=== PATIENT | male | born 1940 | race Caucasian/White ===

== ENCOUNTER 2019-08-24 10:21 | Emergency (ER) | payer MEDICARE, SELFPAY ==
--- NOTE | ~2019-08-24 | XR_ITS ---
EXAMINATION: XR chest 2V DATE: 08/24/2019 11:41 INDICATION: Heart failure. TECHNIQUE: Frontal and lateral views of the chest were obtained. COMPARISON: None. FINDINGS: There are small pleural effusions. There are airspace opacities in the right mid and lower lung zones and left lower lung zone. No pneumothorax. Cardiomegaly is noted. IMPRESSION: 1. Small pleural effusions. 2. Airspace opacities in the right mid and lower lung zones and left lower lung zone, consistent with atelectasis or less likely pneumonia. 3. Cardiomegaly. Reviewed, dictated and finalized at location A.
[2019-08-24 10:36] VITALS: BP 111/87; PULSE 91; RESP 21; TEMP 36.3; O2SAT 95
--- NOTE | 2019-08-24 10:46 | ED.GENADULT ---
HPI - General Adult General Chief complaint: Unspecified Stated complaint: left a fdc and want to know if he is okay Time Seen by Provider: 08/24/19 10:41 Source: patient, family and old records reviewed Mode of arrival: ambulatory Limitations: no limitations History of Present Illness HPI narrative: An 79 y/o male presents to the ED needing a general check-up. Pt's family states that the patient has been at [facility] and the family took him out today because the fdc is trying to push him towards hospice. The family notes that they are unsure why he is here, what his conditions are, and what he has been diagnosed with. The family does not want the patient on hospice and the fdc was making the family be in quarantine so they left the fdc today. According to family the patient has 2 months to live but they do not know why. The patients medication was raised yesterday, but the family does not know which ones or why. The family states he has a PMHx of CHF. He denies CP, SOB, fever, N/V/D, and ABD pain. The family just wants to know if he can go home and if his vitals are okay. The patient is normally not confused but does not know the month, his location, or how old he is. The family adds that he has been going in and out recently. [facility] notes show that he is on a water pill, potassium, and a blood thinner. MD complaint: General check-up Onset (ago): hour(s) (Today) Associated symptoms: confusion Treatments prior to arrival: other (Unknown) Related Data Home Medications Medication Instructions Recorded Confirmed apixaban [Eliquis] 2.5 mg PO BID 08/24/19 furosemide [Lasix] 40 mg PO BID 08/24/19 metoprolol succinate 200 mg PO DAILY 08/24/19 multivitamin,tx-minerals 1 tablet PO DAILY 08/24/19 polyethylene glycol 3350 [Miralax] 17 g PO DAILY 08/24/19 potassium chloride 20 meq PO DAILY 08/24/19 sennosides-docusate sodium [Senna 1 tab-cap PO HS 08/24/19 Plus] spironolactone 25 mg PO TID 08/24/19 Allergies Allergy/AdvReac Type Severity Reaction Status Date / Time No Known Allergies Allergy Verified 08/24/19 10:46 Review of Systems Review of Systems: All systems reviewed & are unremarkable except as noted in HPI and below Constitutional: Constitutional: Denies fever(s) Cardiovascular: Cardiovascular: Denies chest pain Respiratory: Respiratory: Denies dyspnea Gastrointestinal: Gastrointestinal: Denies abdominal pain, Denies diarrhea, Denies nausea and Denies vomiting Neurologic: Reports confusion PMFSH Past Medical History Medical History (Updated 08/24/19 @ 13:09 by Alyse Carlos MD) Acute liver failure CHF (congestive heart failure) Rahman catheter in place Medical history unknown Surgical History Surgical History (Updated 08/24/19 @ 11:04 by Beata Montaño) Surgical history unknown Social History Social History (Updated 08/24/19 @ 11:04 by Beata Montaño) Smoking status: Unknown if ever smoked Exam Narrative: Exam Narrative: GENERAL: well-nourished, and in no acute distress. HEAD: Normocephalic, atraumatic EYES: PERRLA and EOMI, conjunctiva clear without discharge THROAT:Mucous membranes moist, Oropharynx normal without erythema, exudate, peritonsillar swelling or fluctuance NECK: Supple, without lymphadenopathy or mass RESPIRATORY: No respiratory distress, Airway patent, Respirations non-labored, Clear to auscultation without rales, rhonchi or wheeze HEART: Regular rate and rhythm. No murmur heard. Normal peripheral pulses. ABDOMEN: Soft, nontender, nondistended, normal active bowel sounds. No masses. No rebound or guarding, No organomegaly. SKIN: Warm, dry, normal color without rash NEURO: Alert and oriented to person and he knows this is health facility. CN 2-12 grossly intact. No focal deficits. PSYCH: Normal mood and affect. Urinary Catheter: Urinary Catheter: patent and draining and urine cloudy Course Reevaluatio
--- NOTE | 2019-08-24 11:13 | ECG_ITS ---
Measurements Intervals [place] Rate: 109 P: NV: 0 QRS: 263 QRSD: 142 T: 109 QT: 373 QTc: 503 Interpretive Statements ATRIAL FIBRILLATION WITH RAPID VENTRICULAR RESPONSE RIGHT AXIS DEVIATION LEFT BUNDLE BRANCH BLOCK POOR R WAVE PROGRESSION, CONSIDER ANTERIOR INFARCT INFERIOR INFARCT OR DUE TO LBBB BASELINE ARTIFACT- I ABNORMAL ECG Electronically Signed On 08-24-2019 11:47:02 CDT by Idris Marie D.O.
[2019-08-24 11:28] LABS: Basophils Absolute Auto 0.1 K/mm3 (0.0-0.1); Basophils Percent Auto 1.1 % (0.2-1.2); Eosinophils Absolute Auto 0.2 K/mm3 (0-0.3); Eosinophils Percent Auto 2.1 % (0-4.4); Hematocrit 43.7 % (42.0-52.0); Hemoglobin 13.8 g/dL (14.0-18.0); Immature Granulocyte Absolute 0.04 K/mm3 (0.00-0.031); Immature Granulocyte Percent A 0.5 % (0-0.5); Lymphocytes Absolute Auto 1.36 K/mm3 (0.9-3.2); Lymphocytes Percent Auto 18.6 % (18.3-44.2); Mean Corpuscular HGB Conc 31.6 g/dl (32-36); Mean Corpuscular Hemoglobin 30.6 pg (26-34); Mean Corpuscular Volume 96.9 fl (80-100); Mean Platelet Volume 10.4 fl (7.4-10.4); Monocytes Absolute Auto 0.6 K/mm3 (0.1-0.6); Monocytes Percent Auto 8.6 % (2.6-8.5); Neutrophils Absolute Auto 5.1 K/mm3 (1.3-6.7); Neutrophils Percent Auto 69.1 % (45.5-73.1); Platelet Count Result 176 k/mm3 (150-375); Red Blood Count 4.51 M/mm3 (4.6-6.20); Red Cell Distribution Width 16.3 % (11.5-14.5); White Blood Count 7.3 K/mm3 (4.5-10.0)
[2019-08-24 11:37] LABS: INR 1.5; Prothrombin Time 17.5 Seconds (11.1-14.7)
[2019-08-24 11:38] LABS: Partial Thromboplastin Time 30.9 SECONDS (22.3-36.8)
[2019-08-24 11:42] LABS: Alanine Aminotransferase 24 U/L (4-50); Albumin Level 3.7 g/dL (3.5-5.1); Alkaline Phosphatase 99 U/L (38-126); Aspartate Amino Transferase 42 U/L (17-59); Bilirubin,Total 2.4 mg/dL (0.2-1.3); Blood Urea Nitrogen 27 mg/dL (9-20); Calcium 9.3 mg/dL (8.4-10.2); Carbon Dioxide 29 mmol/L (22-30); Chloride 100 mmol/L (98-107); Estimated CRCL calculation 53 ml/min; Estimated Glomerular Filt Rate > 60; Glucose 125 mg/dL (75-110); Magnesium 2.1 mg/dL (1.6-2.3); Potassium 4.4 mmol/L (3.4-5.0); Sodium 135 mmol/L (137-145)
[2019-08-24 11:49] LABS: NT Pro B Type Natriuretic Pept 6590 PG/ML (5-100)
[2019-08-24 12:19] VITALS: BP 121/96; PULSE 94; RESP 19; O2SAT 95
[2019-08-24 12:34] LABS: Add Urine Microscopic? YES; Appearance Urine Turbid (Clear); Bacteria Urine 4+ /hpf; Bilirubin Urine Negative (Negative); Blood Urine 3+ (Negative); Color Urine Amber (Yellow); Glucose Urine UA Negative (Negative); Hyaline Casts Urine 30-49 /lpf; Ketones Urine Negative (Negative); Leukocyte Esterase Ur 2+ LEU/UL (Negative); Mucus Urine Moderate /lpf; Nitrate Urine Positive (Negative); Protein Urine 2+ mg/dL (Negative); RBC Urine >75 /hpf (0-2); Specific Grav Ur 1.018 (1.001-1.035); WBC Clumps Urine Present /HPF; WBC Urine >75 /hpf
[2019-08-24 13:48] VITALS: BP 129/99; PULSE 87; RESP 26; O2SAT 93
== END 2019-08-24 13:49 | disposition home or self-care (01) ==
PROVIDERS: Emergency Provider General Practice
DX: N39.0 Urinary tract infection, site not specified (principal); I50.9 Heart failure, unspecified; K72.90 Hepatic failure, unspecified without coma; I48.91 Unspecified atrial fibrillation; Z79.01 Long term (current) use of anticoagulants; I44.7 Left bundle-branch block, unspecified; R94.31 Abnormal electrocardiogram [ECG] [EKG]; I51.7 Cardiomegaly
CPT/HCPCS: 36415; 71046; 80053; 81001; 83735; 83880; 85025; 85610; 85730; 87077; 87086; 87088; 87186; 93005; 96365; 99284; J0696